=== PATIENT | female | born 1940 | race Caucasian/White ===

== ENCOUNTER 2018-06-08 17:00 | Inpatient (IN) | payer MEDICARE, MEDICAID ==
--- NOTE | 2018-06-08 17:30 | ED Physician Chart ---
ED Chief Complaint/HPI - Patient Information Date Seen:: 06/08/18 Time Seen:: 17:30 Allergies:: Allergies Allergy/AdvReac Type Severity Reaction Status Date / Time No Known Allergies Allergy Verified 06/08/18 17:13 Vitals:: Vital Signs - 8 hr 06/08/18 17:14 Temp 98.2 F HR 76 RR 19 BP 146/54 O2 Sat % 95 Review:: Nurse's Note Reviewed <Jake Anguiano - Last Filed: 06/08/18 17:30> - Patient Information Allergies:: Allergies Allergy/AdvReac Type Severity Reaction Status Date / Time No Known Allergies Allergy Verified 06/08/18 17:13 Vitals:: Vital Signs - 8 hr 06/08/18 06/08/18 17:14 18:48 Temp 98.2 F HR 76 64 RR 19 16 BP 146/54 139/64 O2 Sat % 95 98 <Salo Bustillo - Last Filed: 06/08/18 19:47> ED Review of Systems - Review of Systems General/Constitutional: No fever Skin: No skin lesions Head: No headache Eyes: No loss of vision ENT: No earache Neck: No mass noted Cardio Vascular: No chest pain Pulmonary: No SOB GI: No vomiting G/U: No dysuria Hematopoietic: No bruising Neurological: Syncope <Jake Anguiano - Last Filed: 06/08/18 17:30> ED Past Medical History - Past Medical History Past Medical History: HTN, DM, Dyslipidemia, Dementia ([place]) <Salo Bustillo - Last Filed: 06/08/18 19:47> Family Medical History - Family Member Mother History Unknown: Yes <Salo Bustillo - Last Filed: 06/08/18 19:47> ED Physical Exam - Physical Examination Head: Atraumatic Eyes: Lids, conjuctiva normal Skin: Nl inspection ENMT: External ears, nose nl Neck: Nontender GI: No tenderness/rebounding/guarding Extremities: No tenderness or effusion (CONFUSED ) <Salo Bustillo - Last Filed: 06/08/18 19:47> ED Labs/Radiology/EKG Results - Lab Results Results: Laboratory Tests 06/08/18 06/08/18 06/08/18 17:00 17:30 17:30 WBC RBC Hgb Hct MCV MCH MCHC Differential RDW Plt Count MPV Neutrophils % Lymphocytes % Monocytes % Eosinophils % Basophils % Sodium 138 Potassium 3.7 Chloride 105 Carbon Dioxide 25.3 Anion Gap 11.4 BUN 20 Creatinine 0.5 L Est GFR ( Amer) TNP Est GFR (Non-Af Amer) TNP BUN/Creatinine Ratio 40.0 Glucose 235 H Calcium 9.7 Total Bilirubin 0.7 AST 16 ALT 8 Alkaline Phosphatase 93 Total Protein 6.2 Albumin 3.7 Globulin 2.5 Albumin/Globulin Ratio 1.5 TSH 1.22 Urine Source RANDOM Urine Color YELLOW Urine Clarity HAZY Urine pH 5.5 Ur Specific [place] 1.025 Urine Protein NEGATIVE Urine Glucose (UA) NEGATIVE Urine Ketones NEGATIVE Urine Blood TRACE Urine Nitrate POSITIVE H Urine Bilirubin NEGATIVE Urine Urobilinogen 0.2 Ur Leukocyte Esterase TRACE H Urine RBC 2-5 Urine WBC 6-10 H Ur Epithelial Cells FEW Urine Bacteria 3+ H 06/08/18 17:30 WBC 5.1 RBC 3.91 Hgb 12.3 Hct 36.9 L MCV 94.3 MCH 31.6 H MCHC Differential 33.5 RDW 12.8 Plt Count 168 MPV 8.4 Neutrophils % 54.3 Lymphocytes % 33.4 Monocytes % 7.8 Eosinophils % 3.9 Basophils % 0.6 Sodium Potassium Chloride Carbon Dioxide Anion Gap BUN Creatinine Est GFR ( Amer) Est GFR (Non-Af Amer) BUN/Creatinine Ratio Glucose Calcium Total Bilirubin AST ALT Alkaline Phosphatase Total Protein Albumin Globulin Albumin/Globulin Ratio TSH Urine Source Urine Color Urine Clarity Urine pH Ur Specific [place] Urine Protein Urine Glucose (UA) Urine Ketones Urine Blood Urine Nitrate Urine Bilirubin Urine Urobilinogen Ur Leukocyte Esterase Urine RBC Urine WBC Ur Epithelial Cells Urine Bacteria <Salo Bustillo - Last Filed: 06/08/18 19:47> ED Assessment - Assessment General Assessment: daughter in with falls pt inability to take care self at home here for evaluation and placement <Jake Anguiano - Last Filed: 06/08/18 17:30> ED Septic Shock - <6hrs of presentation: Vital Signs: Vital Signs - 8 hr 06/08/18 17:14 Temp 98.2 F HR 76 RR 19 BP 146/54 O2 Sat % 95 <Jake Anguiano - Last Filed: 06/08/18 17:30> - . Is Septic Shock (SBP<90, OR Lactate>4 mmol\L) present?: No - <6hrs of presentation: Vital Signs: Vital Signs - 8 hr 06/08/18 06/08/18 17:14 18:48 Temp 98.2 F HR 76 64 RR 19 16 BP 146/54 139/64 O2 Sat % 95 98 <Salo Bustillo - Last Filed: 06/08/18 19:47> ED Reassessment (Disposition) - Reassessment Reassessment:: WEAKNESS FALLS DEMENTIA Reassessment Condition:: Improved - Patient Disposition Discharge/Transfer:: Acute Care w/in this hosp Admitted to:: Med/Surg Condition at Disposition:: Stable <Salo Bustillo - Last Filed: 06/08/18 19:47>
[2018-06-08 17:47] LABS: % BASOPHILS 0.6 % (0.0-2.0); % EOSINOPHILS 3.9 % (0.0-5.0); % LYMPHOCYTES 33.4 % (20.0-50.0); % MONOCYTES 7.8 % (2.0-10.0); % NEUTROPHILS 54.3 % (40.0-80.0); EOSINOPHILE ABSOLUTE 0.2 Th/cmm (0.1-0.4); HEMATOCRIT 36.9 % (41.0-60); HEMOGLOBIN 12.3 gm/dL (12-16); LYMPHOCYTE ABSOLUTE 1.7 Th/cmm (1.5-3.0); MEAN CELL VOLUME 94.3 fl (81-100); MEAN CORPUSCULAR HEMOGLOBIN 31.6 pg (27.0-31.0); MEAN CORPUSCULAR HGB CONC 33.5 pg (28.0-36.0); MEAN PLATELET VOLUME 8.4 fl; MONOCYTE ABSOLUTE 0.4 Th/cmm (0.3-1.0); NEUTROPHILE ABSOLUTE 2.8 Th/cmm (1.8-8.0); PLATELET COUNT 168 Th/cmm (150-400); RED BLOOD COUNT 3.91 Mil/cmm (3.80-5.20); RED CELL DISTRIBUTION WIDTH 12.8 % (11.5-20.0); WHITE BLOOD COUNT 5.1 Th/cmm (4.8-10.8)
[2018-06-08 18:06] LABS: ALB/GLOB RATIO 1.5 (1.0-1.8); ALBUMIN 3.7 gm/dL (3.7-5.3); ALKALINE PHOSPHATASE 93 U/L (34-104); ANION GAP 11.4 (7.0-16.0); BILIRUBIN,TOTAL 0.7 mg/dL (0.3-1.0); BUN - UREA NITROGEN 20 mg/dL (7-25); CALCIUM SERUM 9.7 mg/dL (8.6-10.3); CARBON DIOXIDE 25.3 mEq/L (21.0-31.0); CHLORIDE 105 mEq/L (98-107); CREATININE - SERUM 0.5 mg/dL (0.6-1.2); GLUCOSE 235 mg/dL (70-105); POTASSIUM SERUM 3.7 mEq/L (3.5-5.1); SGOT 16 U/L (13-39); SGPT/ALT 8 U/L (7-52); SODIUM SERUM 138 mEq/L (136-145); TOTAL PROTEIN,SERUM 6.2 gm/dL (6.0-8.3)
[2018-06-08 18:53] LABS: URINE SOURCE RANDOM
[2018-06-08 18:57] LABS: URINE BILIRUBIN NEGATIVE (NEGATIVE); URINE BLOOD TRACE (NEGATIVE); URINE GLUCOSE (UA) NEGATIVE (NEGATIVE); URINE KETONE NEGATIVE (NEGATIVE); URINE LEUKOCYTE ESTERASE TRACE (NEGATIVE); URINE MICROSCOPIC INDICATED? YES; URINE NITRATE POSITIVE (NEGATIVE); URINE PH 5.5 (4.6 - 8.0); URINE PROTEIN NEGATIVE (NEGATIVE); URINE UROBILINOGEN 0.2 E.U./dL (0.2 - 1.0)
[2018-06-08 19:21] LABS: URINE CLARITY HAZY (CLEAR); URINE COLOR YELLOW
[2018-06-08 19:25] LABS: URINE BACTERIA 3+ /hpf (NONE SEEN); URINE EPITHELIAL CELLS FEW /lpf (FEW)
[2018-06-08 20:31] VITALS: BP 131/86
[2018-06-08] MEDS: cefTRIAXone 1 GM in Sodium Chloride 0.9% 50 ML IV SCH (20:56)
[2018-06-09 06:22] LABS: % BASOPHILS 0.4 % (0.0-2.0); % EOSINOPHILS 4.4 % (0.0-5.0); % LYMPHOCYTES 36.4 % (20.0-50.0); % MONOCYTES 7.7 % (2.0-10.0); % NEUTROPHILS 51.1 % (40.0-80.0); EOSINOPHILE ABSOLUTE 0.2 Th/cmm (0.1-0.4); HEMATOCRIT 36.4 % (41.0-60); HEMOGLOBIN 12.2 gm/dL (12-16); MEAN CELL VOLUME 92.9 fl (81-100); MEAN CORPUSCULAR HEMOGLOBIN 31.1 pg (27.0-31.0); MEAN CORPUSCULAR HGB CONC 33.5 pg (28.0-36.0); MEAN PLATELET VOLUME 8.6 fl; MONOCYTE ABSOLUTE 0.4 Th/cmm (0.3-1.0); NEUTROPHILE ABSOLUTE 2.9 Th/cmm (1.8-8.0); PLATELET COUNT 170 Th/cmm (150-400); RED BLOOD COUNT 3.92 Mil/cmm (3.80-5.20); RED CELL DISTRIBUTION WIDTH 12.8 % (11.5-20.0); WHITE BLOOD COUNT 5.5 Th/cmm (4.8-10.8)
[2018-06-09 06:31] LABS: ANION GAP 10.5 (7.0-16.0); BUN - UREA NITROGEN 14 mg/dL (7-25); CALCIUM SERUM 9.7 mg/dL (8.6-10.3); CARBON DIOXIDE 27.8 mEq/L (21.0-31.0); CHLORIDE 107 mEq/L (98-107); CHOLESTEROL 165 mg/dL (<200); CREATININE - SERUM 0.4 mg/dL (0.6-1.2); HDL -HIGH DENSITY LIPOPROTEIN 27 mg/dL (23-92); POTASSIUM SERUM 3.3 mEq/L (3.5-5.1); SODIUM SERUM 142 mEq/L (136-145); TRIGLYCERIDES 159 mg/dL (<150)
[2018-06-09 06:52] LABS: GLUCOSE 107 mg/dL (70-105)
[2018-06-09] MEDS ORDERED: Potassium Chloride 20 mEq ER Tab PO ONE (07:47)
--- NOTE | 2018-06-09 07:56 | Diagnostic Imaging Report ---
Exam: Portable chest x-ray HISTORY: Pneumonia Prior exam: None Findings: Portable upright examination of the chest at 1805 is reviewed. The study was just cardiomegaly, mild congestion. The costophrenic angles are clear. Bony thorax is intact. Multiple metallic sutures are noted status post restaurant thoracotomy. IMPRESSION: Cardiomegaly, mild congestion.
--- NOTE | 2018-06-09 09:54 | Diagnostic Imaging Report ---
Head CT without intravenous contrast Indication: Fall Comparison: None Technique: Axial images were obtained from the vertex to the skull base without IV contrast. Coronal reconstructions were made. Total DLP: 617, CTDI35.2 FINDINGS: Images of the brain obtained without contrast demonstrate no evidence of an acute hemorrhage. Mild atrophy is noted. The lemus-white matter differentiation is preserved. The ventricles and basal cisterns are patent. No mass effect or midline shift. Atherosclerosis is noted. No evidence of a skull fracture or focal soft tissue swelling. The visualized paranasal sinuses demonstrate mild mucosal thickening. IMPRESSION: No acute intracranial abnormality Mild atrophy. Atherosclerotic vascular disease.
--- NOTE | 2018-06-09 17:23 | History & Physical ---
ADMIT DATE: 06/09/2018 REQUESTING PHYSICIAN: Dr. Najera. CHIEF COMPLAINT: Headache. HISTORY OF PRESENT ILLNESS: This is an 78-year-old female who has a 2-day history of increase of weakness, poor oral intake and frequent falls. No reports of any fevers or any dizziness at home. For further management, the patient is now admitted to the telemetry unit. PAST MEDICAL HISTORY: Hypertension, type 2 diabetes, psychosis. PAST SURGICAL HISTORY: Unknown. ALLERGIES: No drug allergies. HOME MEDICATIONS: Atenolol, glipizide, metformin, Seroquel. SOCIAL HISTORY: The patient lives at home. Denies any alcohol, illicit drug use, tobacco smoking. REVIEW OF SYSTEMS: GENERAL: Denies any fever or chills. CARDIOVASCULAR: Denies chest pain. RESPIRATORY: Denies shortness of breath. GASTROINTESTINAL: Denies nausea, vomiting, abdominal pain. GENITOURINARY: Denies increasing frequency or dysuria. NEUROLOGIC: No headaches, seizures or syncope. All systems reviewed and negative. PHYSICAL EXAMINATION: GENERAL: The patient is an elderly female. Awake, alert, no apparent distress. VITAL SIGNS: Temperature 97.5, heart rate 64, respiration 18, blood pressure 114/63, O2 97%. HEENT: Head normocephalic, atraumatic. NECK: Supple. No mass. LUNGS: Clear bilaterally. HEART: Regular rhythm. ABDOMEN: Soft, nontender. EXTREMITIES: No edema noted. LABORATORY DATA: WBC 5.5, H and H 12.2 and 36.4, platelet of 170. Sodium 142, potassium 3.3, chloride 107, BUN 14, creatinine 0.4. The patient had a urinalysis done, positive for UTI. DIAGNOSTICS: The patient had a CT of the head, impression is no intracranial hemorrhage. The patient also had a chest x-ray done, impression is cardiomegaly, mild congestion. ASSESSMENT: Acute urinary tract infection, frequent falls, generalized weakness, hypertension, type 2 diabetes. PLAN: We will send the patient's urine for culture, IV antibiotics of Rocephin. We will monitor the patient's potassium closely, follow up labs for tomorrow morning. We will put PT evaluation. We will continue to monitor this patient. JOB# [id number]
[2018-06-09] MEDS: cefTRIAXone 1 GM in Sodium Chloride 0.9% 50 ML IV SCH (20:19)
--- NOTE | 2018-06-09 21:18 | Consultation ---
DATE OF CONSULTATION: 06/09/2018 INFECTIOUS DISEASE CONSULTATION REFERRING PHYSICIAN: Dr. Najera REASON FOR CONSULTATION: Urinary tract infection. HISTORY OF PRESENT ILLNESS: The patient is an 78-year-old female with past medical history of hypertension and diabetes mellitus type 2, brought from home for poor oral intake as well as generalized weakness. On initial evaluation, the patient's temperature was 98.2 degree Fahrenheit and WBC count was 5100. Urinalysis showed pyuria and bacteriuria. Rocephin IV was started. ID consult was called for further antibiotic management. PAST MEDICAL HISTORY: Includes diabetes mellitus type 2, hypertension, dementia, dyslipidemia. ALLERGIES: NKDA. MEDICATIONS: See medication reconciliation. Antibiotic-rushing, Rocephin. FAMILY HISTORY: Unknown. SOCIAL HISTORY: The patient lives at home. Denies any smoking, alcohol or drug use. REVIEW OF SYSTEMS: GENERAL: The patient has no fever, no chills, no generalized weakness. HEENT: No diplopia, no photophobia, no sore throat. RESPIRATORY: No cough, no shortness of breath. CARDIOVASCULAR: No chest pain, no palpitation. GASTROINTESTINAL: No nausea, no vomiting, no diarrhea, no constipation. GENITOURINARY: No dysuria. NEUROLOGIC: No headache, no dizziness, no focal weakness. PHYSICAL EXAMINATION: CURRENT VITAL SIGNS: Show temperature is 96.9, pulse 60, respiration is 18, blood pressure 111/79, oxygen saturation 92%. GENERAL: The patient is comfortable, lying in bed, not in acute distress. HEENT: Head is normocephalic, atraumatic. Oral cavity is moist. [place] tongue. NECK: Supple. No JVD. No carotid bruit. Trachea midline. CHEST: Bilateral breath sounds. No crackles or wheezing. HEART: S1 and S2 within normal limits. Regular rhythm. No murmur, no gallop. ABDOMEN: Soft, nontender, nondistended. Bowel sound is present. EXTREMITIES: No cyanosis, no clubbing, no edema. NEUROLOGIC: Alert, awake, oriented x3. LABORATORY DATA: Current lab shows WBC count is 5500, hemoglobin 12.2, hematocrit 36.4, platelets are 170,000, neutrophil is 51%. Sodium 142, potassium 3.3, chloride 107, bicarbonate 28, BUN is 14, creatinine 0.4, glucose 107. Urinalysis shows positive nitrite, leukocyte esterase trace, and WBC's 6-10, and 3+ bacteria. IMPRESSION: 1. Urinary tract infection. 2. Diabetes mellitus type 2. 3. Hypertension. 4. Hyperlipidemia. 5. Dementia. RECOMMENDATIONS AND PLAN: We will continue Rocephin, which can be changed to Levaquin 250 mg p.o. daily for 5 more days. Follow the culture report, and depending on that, we will define further therapy. Thank you, Dr. Najera, for involving me in taking care of this patient. JOB# [id number]
--- NOTE | 2018-06-10 05:24 | Consultation ---
DATE OF CONSULTATION: 06/09/2018 NEUROLOGY CONSULT HISTORY OF PRESENT ILLNESS: An 78-year-old female noted to have weakness and some unsteadiness. The patient noted to be ataxic with tendency to fall. Some dizziness. In addition, the patient complains of some headache. PAST MEDICAL HISTORY: 1. The patient has dementia. 2. Psychosis. 3. Diabetes. 4. Hypertension. ALLERGIES: None. SURGERIES: No recent surgeries. MEDICATION: Seroquel, glipizide, metformin, atenolol. SOCIAL HISTORY: Does not smoke or drink. REVIEW OF SYSTEMS: Twelve point negative except for above. PHYSICAL EXAMINATION: VITAL SIGNS: Temperature 98.2, blood pressure 120/68, pulse 66. NECK: Supple. No neck bruits. HEART: Sounds S1, S2. LUNGS: Clear. NEUROLOGIC: Awake, alert. She speaks mainly [place]. She will give her name, but does not say much else. She could not give me the day, the month, the year. CRANIAL NERVES: Pupils react to light. The patient moves eyes in all directions. No facial weakness. MOTOR: She will actually lift both arms up. Legs, she is weaker. She will lift them up, but weaker. Reflexes: -1 upper extremity, absent at the knees and ankles. Withdrawal of the toes. INVESTIGATIONS: CT scan of the head, no acute process. LABORATORY DATA: WBC 5.5, hemoglobin 12.2, platelets normal. Sodium 142, potassium 3.3. TSH 3.54. UA positive, 6-10. ASSESSMENT: 1. Encephalopathy. 2. Underlying dementia. 3. Ataxia. 4. Falls. 5. Rule out spinal process. 6. Peripheral neuropathy. 7. Diabetes. 8. Hypertension. 9. Urinary tract infection. PLAN: 1. Physical therapy. The patient has high risk of fall, needs physical therapy and walking aids. 2. CT scan, cervical spine. 3. Lab studies. JOB# [id number]
[2018-06-10 06:38] LABS: % BASOPHILS 0.5 % (0.0-2.0); % LYMPHOCYTES 30.1 % (20.0-50.0); % MONOCYTES 7.7 % (2.0-10.0); % NEUTROPHILS 58.7 % (40.0-80.0); EOSINOPHILE ABSOLUTE 0.2 Th/cmm (0.1-0.4); HEMATOCRIT 38.3 % (41.0-60); HEMOGLOBIN 12.7 gm/dL (12-16); LYMPHOCYTE ABSOLUTE 1.7 Th/cmm (1.5-3.0); MEAN CELL VOLUME 94.2 fl (81-100); MEAN CORPUSCULAR HEMOGLOBIN 31.2 pg (27.0-31.0); MEAN CORPUSCULAR HGB CONC 33.1 pg (28.0-36.0); MEAN PLATELET VOLUME 8.9 fl; MONOCYTE ABSOLUTE 0.4 Th/cmm (0.3-1.0); NEUTROPHILE ABSOLUTE 3.2 Th/cmm (1.8-8.0); PLATELET COUNT 171 Th/cmm (150-400); RED BLOOD COUNT 4.07 Mil/cmm (3.80-5.20); RED CELL DISTRIBUTION WIDTH 12.4 % (11.5-20.0); WHITE BLOOD COUNT 5.5 Th/cmm (4.8-10.8)
[2018-06-10 06:52] LABS: ALB/GLOB RATIO 1.4 (1.0-1.8); ALBUMIN 3.6 gm/dL (3.7-5.3); ALKALINE PHOSPHATASE 76 U/L (34-104); BILIRUBIN,TOTAL 0.7 mg/dL (0.3-1.0); BUN - UREA NITROGEN 15 mg/dL (7-25); CALCIUM SERUM 9.9 mg/dL (8.6-10.3); CARBON DIOXIDE 28.5 mEq/L (21.0-31.0); CHLORIDE 105 mEq/L (98-107); CREATININE - SERUM 0.5 mg/dL (0.6-1.2); CREATININE KINASE 36 U/L (30-223); GLUCOSE 67 mg/dL (70-105); POTASSIUM SERUM 3.5 mEq/L (3.5-5.1); SGOT 16 U/L (13-39); SGPT/ALT 9 U/L (7-52); SODIUM SERUM 141 mEq/L (136-145); TOTAL PROTEIN,SERUM 6.2 gm/dL (6.0-8.3)
[2018-06-10 08:19] LABS: ESR SEDIMENTATION SED RATE 1 mm/hr (0-30)
--- NOTE | 2018-06-10 09:00 | Internal Medicine Prog Note ---
Internal Medicine Subjective - Subjective Service Date: 06/10/18 Patient seen and examined:: chart reviewed Patient is:: awake, in bed, confused Per staff patient has:: confused Internal Medicine Objective - Results Result Diagrams: 06/10/18 05:45 06/10/18 05:45 Recent Labs: Laboratory Last Values WBC 5.5 Th/cmm (4.8-10.8) 06/10/18 05:45 RBC 4.07 Mil/cmm (3.80-5.20) 06/10/18 05:45 Hgb 12.7 gm/dL (12-16) 06/10/18 05:45 Hct 38.3 % (41.0-60) L 06/10/18 05:45 MCV 94.2 fl (81-100) 06/10/18 05:45 MCH 31.2 pg (27.0-31.0) H 06/10/18 05:45 MCHC Differential 33.1 pg (28.0-36.0) 06/10/18 05:45 RDW 12.4 % (11.5-20.0) 06/10/18 05:45 Plt Count 171 Th/cmm (150-400) 06/10/18 05:45 MPV 8.9 fl 06/10/18 05:45 Neutrophils % 58.7 % (40.0-80.0) 06/10/18 05:45 Lymphocytes % 30.1 % (20.0-50.0) 06/10/18 05:45 Monocytes % 7.7 % (2.0-10.0) 06/10/18 05:45 Eosinophils % 3.0 % (0.0-5.0) 06/10/18 05:45 Basophils % 0.5 % (0.0-2.0) 06/10/18 05:45 ESR 1 mm/hr (0-30) 06/10/18 05:45 Sodium 141 mEq/L (136-145) 06/10/18 05:45 Potassium 3.5 mEq/L (3.5-5.1) 06/10/18 05:45 Chloride 105 mEq/L (98-107) 06/10/18 05:45 Carbon Dioxide 28.5 mEq/L (21.0-31.0) 06/10/18 05:45 Anion Gap 11.0 (7.0-16.0) 06/10/18 05:45 BUN 15 mg/dL (7-25) 06/10/18 05:45 Creatinine 0.5 mg/dL (0.6-1.2) L 06/10/18 05:45 Est GFR ( Amer) TNP 06/10/18 05:45 Est GFR (Non-Af Amer) TNP 06/10/18 05:45 BUN/Creatinine Ratio 30.0 06/10/18 05:45 Glucose 67 mg/dL (70-105) L 06/10/18 05:45 Calcium 9.9 mg/dL (8.6-10.3) 06/10/18 05:45 Total Bilirubin 0.7 mg/dL (0.3-1.0) 06/10/18 05:45 AST 16 U/L (13-39) 06/10/18 05:45 ALT 9 U/L (7-52) 06/10/18 05:45 Alkaline Phosphatase 76 U/L (34-104) 06/10/18 05:45 Creatine Kinase 36 U/L (30-223) 06/10/18 05:45 Total Protein 6.2 gm/dL (6.0-8.3) 06/10/18 05:45 Albumin 3.6 gm/dL (3.7-5.3) L 06/10/18 05:45 Globulin 2.6 gm/dL 06/10/18 05:45 Albumin/Globulin Ratio 1.4 (1.0-1.8) 06/10/18 05:45 Triglycerides 159 mg/dL (<150) H 06/09/18 05:55 Cholesterol 165 mg/dL (<200) 06/09/18 05:55 LDL Cholesterol Direct 109 mg/dL (75-193) 06/09/18 05:55 HDL Cholesterol 27 mg/dL (23-92) 06/09/18 05:55 TSH 3.54 uIU/ml (0.34-5.60) 06/09/18 05:55 Urine Source RANDOM 06/08/18 17:00 Urine Color YELLOW 06/08/18 17:00 Urine Clarity HAZY (CLEAR) 06/08/18 17:00 Urine pH 5.5 (4.6 - 8.0) 06/08/18 17:00 Ur Specific [place] 1.025 (1.005-1.030) 06/08/18 17:00 Urine Protein NEGATIVE mg/dL (NEGATIVE) 06/08/18 17:00 Urine Glucose (UA) NEGATIVE mg/dL (NEGATIVE) 06/08/18 17:00 Urine Ketones NEGATIVE mg/dL (NEGATIVE) 06/08/18 17:00 Urine Blood TRACE (NEGATIVE) 06/08/18 17:00 Urine Nitrate POSITIVE (NEGATIVE) H 06/08/18 17:00 Urine Bilirubin NEGATIVE (NEGATIVE) 06/08/18 17:00 Urine Urobilinogen 0.2 E.U./dL (0.2 - 1.0) 06/08/18 17:00 Ur Leukocyte Esterase TRACE (NEGATIVE) H 06/08/18 17:00 Urine RBC 2-5 /hpf (0-5) 06/08/18 17:00 Urine WBC 6-10 /hpf (0-5) H 06/08/18 17:00 Ur Epithelial Cells FEW /lpf (FEW) 06/08/18 17:00 Urine Bacteria 3+ /hpf (NONE SEEN) H 06/08/18 17:00 - Physical Exam Vitals and I&O: Vital Signs Temp 97.2 F 06/10/18 06:00 Pulse 61 06/10/18 08:49 Resp 18 06/10/18 06:00 BP 132/66 06/10/18 08:49 Pulse Ox 96 06/10/18 06:00 Intake & Output 06/09/18 06/10/18 06/10/18 18:59 06:59 18:59 Intake Total 800 Balance 800 Weight (lbs) 62.142 kg Intake: Oral 800 Other: # Voids 3 # Bowel Movements 0 Weight Source Bedscale Active Medications: Current Medications Acetaminophen (Tylenol) 650 mg PO Q4H PRN PRN Reason: Pain (Moderate) Stop: 08/08/18 10:00 Last Admin: 06/09/18 10:10 Dose: 650 mg Atenolol (Tenormin) 25 mg PO DAILY [facility] Stop: 08/09/18 08:59 Last Admin: 06/10/18 08:49 Dose: 25 mg Glipizide (Glucotrol) 15 mg PO BID [facility] Stop: 08/08/18 16:59 Last Admin: 04/02/19 16:58 Dose: 15 mg Ceftriaxone Sodium 1 gm/ (Sodium Chloride) 50 mls @ 100 mls/hr IV Q24HR [facility] Stop: 06/14/18 21:29 Last Admin: 06/09/18 20:19 Dose: 100 mls/hr Lorazepam (Ativan) 1 mg IVP Q6H PRN; Protocol PRN Reason: Agitation Stop: 08/07/18 21:22 Last Admin: 06/09/18 14:17 Dose: 1 mg Metformin HCl (Glucophage) 1,000 mg PO BID [facility] Stop: 08/08/18 16:59 Last Admin: 06/09/18 16:58 Dose: 1,000 mg Quetiapine Fumarate (Seroquel) 25 mg PO HS [facility]; Protocol Stop: 08/08/18 20:59
--- NOTE | 2018-06-10 09:01 | Internal Medicine Prog Note ---
Internal Medicine Subjective - Subjective Service Date: 06/10/18 Patient seen and examined:: chart reviewed Patient is:: awake, confused Per staff patient has:: no episodes of fall, confused Internal Medicine Objective - Results Result Diagrams: 06/10/18 05:45 06/10/18 05:45 Recent Labs: Laboratory Last Values WBC 5.5 Th/cmm (4.8-10.8) 06/10/18 05:45 RBC 4.07 Mil/cmm (3.80-5.20) 06/10/18 05:45 Hgb 12.7 gm/dL (12-16) 06/10/18 05:45 Hct 38.3 % (41.0-60) L 06/10/18 05:45 MCV 94.2 fl (81-100) 06/10/18 05:45 MCH 31.2 pg (27.0-31.0) H 06/10/18 05:45 MCHC Differential 33.1 pg (28.0-36.0) 06/10/18 05:45 RDW 12.4 % (11.5-20.0) 06/10/18 05:45 Plt Count 171 Th/cmm (150-400) 06/10/18 05:45 MPV 8.9 fl 06/10/18 05:45 Neutrophils % 58.7 % (40.0-80.0) 06/10/18 05:45 Lymphocytes % 30.1 % (20.0-50.0) 06/10/18 05:45 Monocytes % 7.7 % (2.0-10.0) 06/10/18 05:45 Eosinophils % 3.0 % (0.0-5.0) 06/10/18 05:45 Basophils % 0.5 % (0.0-2.0) 06/10/18 05:45 ESR 1 mm/hr (0-30) 06/10/18 05:45 Sodium 141 mEq/L (136-145) 06/10/18 05:45 Potassium 3.5 mEq/L (3.5-5.1) 06/10/18 05:45 Chloride 105 mEq/L (98-107) 06/10/18 05:45 Carbon Dioxide 28.5 mEq/L (21.0-31.0) 06/10/18 05:45 Anion Gap 11.0 (7.0-16.0) 06/10/18 05:45 BUN 15 mg/dL (7-25) 06/10/18 05:45 Creatinine 0.5 mg/dL (0.6-1.2) L 06/10/18 05:45 Est GFR ( Amer) TNP 06/10/18 05:45 Est GFR (Non-Af Amer) TNP 06/10/18 05:45 BUN/Creatinine Ratio 30.0 06/10/18 05:45 Glucose 67 mg/dL (70-105) L 06/10/18 05:45 Calcium 9.9 mg/dL (8.6-10.3) 06/10/18 05:45 Total Bilirubin 0.7 mg/dL (0.3-1.0) 06/10/18 05:45 AST 16 U/L (13-39) 06/10/18 05:45 ALT 9 U/L (7-52) 06/10/18 05:45 Alkaline Phosphatase 76 U/L (34-104) 06/10/18 05:45 Creatine Kinase 36 U/L (30-223) 06/10/18 05:45 Total Protein 6.2 gm/dL (6.0-8.3) 06/10/18 05:45 Albumin 3.6 gm/dL (3.7-5.3) L 06/10/18 05:45 Globulin 2.6 gm/dL 06/10/18 05:45 Albumin/Globulin Ratio 1.4 (1.0-1.8) 06/10/18 05:45 Triglycerides 159 mg/dL (<150) H 06/09/18 05:55 Cholesterol 165 mg/dL (<200) 06/09/18 05:55 LDL Cholesterol Direct 109 mg/dL (75-193) 06/09/18 05:55 HDL Cholesterol 27 mg/dL (23-92) 06/09/18 05:55 TSH 3.54 uIU/ml (0.34-5.60) 06/09/18 05:55 Urine Source RANDOM 06/08/18 17:00 Urine Color YELLOW 06/08/18 17:00 Urine Clarity HAZY (CLEAR) 06/08/18 17:00 Urine pH 5.5 (4.6 - 8.0) 06/08/18 17:00 Ur Specific [place] 1.025 (1.005-1.030) 06/08/18 17:00 Urine Protein NEGATIVE mg/dL (NEGATIVE) 06/08/18 17:00 Urine Glucose (UA) NEGATIVE mg/dL (NEGATIVE) 06/08/18 17:00 Urine Ketones NEGATIVE mg/dL (NEGATIVE) 06/08/18 17:00 Urine Blood TRACE (NEGATIVE) 06/08/18 17:00 Urine Nitrate POSITIVE (NEGATIVE) H 06/08/18 17:00 Urine Bilirubin NEGATIVE (NEGATIVE) 06/08/18 17:00 Urine Urobilinogen 0.2 E.U./dL (0.2 - 1.0) 06/08/18 17:00 Ur Leukocyte Esterase TRACE (NEGATIVE) H 06/08/18 17:00 Urine RBC 2-5 /hpf (0-5) 06/08/18 17:00 Urine WBC 6-10 /hpf (0-5) H 06/08/18 17:00 Ur Epithelial Cells FEW /lpf (FEW) 06/08/18 17:00 Urine Bacteria 3+ /hpf (NONE SEEN) H 06/08/18 17:00 - Physical Exam Vitals and I&O: Vital Signs Temp 97.2 F 06/10/18 06:00 Pulse 61 06/10/18 08:49 Resp 18 06/10/18 06:00 BP 132/66 06/10/18 08:49 Pulse Ox 96 06/10/18 06:00 Intake & Output 06/09/18 06/10/18 06/10/18 18:59 06:59 18:59 Intake Total 800 Balance 800 Weight (lbs) 62.142 kg Intake: Oral 800 Other: # Voids 3 # Bowel Movements 0 Weight Source Bedscale Active Medications: Current Medications Acetaminophen (Tylenol) 650 mg PO Q4H PRN PRN Reason: Pain (Moderate) Stop: 08/08/18 10:00 Last Admin: 06/09/18 10:10 Dose: 650 mg Atenolol (Tenormin) 25 mg PO DAILY [facility] Stop: 08/09/18 08:59 Last Admin: 06/10/18 08:49 Dose: 25 mg Glipizide (Glucotrol) 15 mg PO BID [facility] Stop: 08/08/18 16:59 Last Admin: 06/09/18 16:58 Dose: 15 mg Ceftriaxone Sodium 1 gm/ (Sodium Chloride) 50 mls @ 100 mls/hr IV Q24HR [facility] Stop: 06/14/18 21:29 Last Admin: 06/09/18 20:19 Dose: 100 mls/hr Lorazepam (Ativan) 1 mg IVP Q6H PRN; Protocol PRN Reason: Agitation Stop: 08/07/18 21:22 Last Admin: 06/09/18 14:17 Dose: 1 mg Metformin HCl (Glucophage) 1,000 mg PO BID [facility] Stop: 08/08/18 16:59 Last Admin: 06/09/18 16:58 Dose: 1,000 mg Quetiapine Fumarate (Seroquel) 25 mg PO HS [facility]; Protocol Stop: 08/08/18 20:59
--- NOTE | 2018-06-10 10:11 | Diagnostic Imaging Report ---
Bilateral carotid Doppler ultrasound exam HISTORY: Ataxia Sonographic sector images are obtained to the carotid bifurcation regions bilaterally. Associated Doppler data was obtained. The exam of the right side demonstrates generalized intimal thickening throughout the bifurcation region. Mild multifocal plaque is seen in the common carotid artery and carotid bulb region. No significant narrowing or stenosis. Antegrade vertebral artery flow. Velocities and flow ratios are normal (ICC/CCA equals 0.6). The left side demonstrates mild multifocal atherosclerotic plaque within the carotid bulb region and proximal portion of the left internal carotid artery. No significant narrowing or stenosis. Antegrade vertebral artery flow. Velocities and flow ratios are normal (ICC/CCA equals 1.08). IMPRESSION: 1. Mild multifocal atherosclerotic changes. These do not appear to be hemodynamically significant.
--- NOTE | 2018-06-10 11:51 | Diagnostic Imaging Report ---
CT scan cervical spine HISTORY: Ataxia, trauma Total DLP equals 472 CTDI equals 22.5 Axial sections were obtained to the cervical spine. Additional sagittal and coronal reformatted images are provided. The exam demonstrates extensive abnormal changes about the odontoid process with marked irregularity and subcortical cyst formation. Dense calcification is noted along the margins of the odontoid process particularly posteriorly. Findings are consistent with changes of calcium pyrophosphate deposition disease. There is suggestion of mild encroachment on the adjacent cervical spinal cord. An MRI exam would provide additional detail. Additional diffuse degenerative changes with hypertrophic spur formation noted about the endplates of all vertebrae. There is slight retrolisthesis of C5 relative to C4. Narrowing of the C5-6 and C6-7 disc spaces. Spur formation results in mild to moderate extradural indentations on the anterior spinal canal at C4-5, C6-7, and to a somewhat greater degree C5-6. No acute abnormalities. No fractures. IMPRESSION: 1. Severe deformity and chronic changes about the odontoid process with adjacent calcification suggesting findings of calcium pyrophosphate deposition disease. Associated mild encroachment on the adjacent cervical spinal cord. An MRI exam would provide for further assessment and evaluation. 2. Additional diffuse degenerative changes most severe at C5-6.
[2018-06-10] MEDS: cefTRIAXone 1 GM in Sodium Chloride 0.9% 50 ML IV SCH (20:44)
--- NOTE | 2018-06-10 23:24 | Infectious Disease Prog Note ---
Infectious Disease Subjective - Review of Systems Service Date: 06/10/18 Subjective: There is no new change, no fever. Infectious Disease Objective - Results Result Diagrams: 06/11/18 05:40 06/11/18 05:40 Recent Labs: Laboratory Last Values WBC 5.5 Th/cmm (4.8-10.8) 06/10/18 05:45 RBC 4.07 Mil/cmm (3.80-5.20) 06/10/18 05:45 Hgb 12.7 gm/dL (12-16) 06/10/18 05:45 Hct 38.3 % (41.0-60) L 06/10/18 05:45 MCV 94.2 fl (81-100) 06/10/18 05:45 MCH 31.2 pg (27.0-31.0) H 06/10/18 05:45 MCHC Differential 33.1 pg (28.0-36.0) 06/10/18 05:45 RDW 12.4 % (11.5-20.0) 06/10/18 05:45 Plt Count 171 Th/cmm (150-400) 06/10/18 05:45 MPV 8.9 fl 06/10/18 05:45 Neutrophils % 58.7 % (40.0-80.0) 06/10/18 05:45 Lymphocytes % 30.1 % (20.0-50.0) 06/10/18 05:45 Monocytes % 7.7 % (2.0-10.0) 06/10/18 05:45 Eosinophils % 3.0 % (0.0-5.0) 06/10/18 05:45 Basophils % 0.5 % (0.0-2.0) 06/10/18 05:45 ESR 1 mm/hr (0-30) 06/10/18 05:45 Sodium 141 mEq/L (136-145) 06/10/18 05:45 Potassium 3.5 mEq/L (3.5-5.1) 06/10/18 05:45 Chloride 105 mEq/L (98-107) 06/10/18 05:45 Carbon Dioxide 28.5 mEq/L (21.0-31.0) 06/10/18 05:45 Anion Gap 11.0 (7.0-16.0) 06/10/18 05:45 BUN 15 mg/dL (7-25) 06/10/18 05:45 Creatinine 0.5 mg/dL (0.6-1.2) L 06/10/18 05:45 Est GFR ( Amer) TNP 06/10/18 05:45 Est GFR (Non-Af Amer) TNP 06/10/18 05:45 BUN/Creatinine Ratio 30.0 06/10/18 05:45 Glucose 67 mg/dL (70-105) L 06/10/18 05:45 POC Glucose 74 MG/DL (70 - 105) 06/10/18 16:13 Calcium 9.9 mg/dL (8.6-10.3) 06/10/18 05:45 Total Bilirubin 0.7 mg/dL (0.3-1.0) 06/10/18 05:45 AST 16 U/L (13-39) 06/10/18 05:45 ALT 9 U/L (7-52) 06/10/18 05:45 Alkaline Phosphatase 76 U/L (34-104) 06/10/18 05:45 Creatine Kinase 36 U/L (30-223) 06/10/18 05:45 Total Protein 6.2 gm/dL (6.0-8.3) 06/10/18 05:45 Albumin 3.6 gm/dL (3.7-5.3) L 06/10/18 05:45 Globulin 2.6 gm/dL 06/10/18 05:45 Albumin/Globulin Ratio 1.4 (1.0-1.8) 06/10/18 05:45 Triglycerides 159 mg/dL (<150) H 06/09/18 05:55 Cholesterol 165 mg/dL (<200) 06/09/18 05:55 LDL Cholesterol Direct 109 mg/dL (75-193) 06/09/18 05:55 HDL Cholesterol 27 mg/dL (23-92) 06/09/18 05:55 TSH 3.54 uIU/ml (0.34-5.60) 06/09/18 05:55 Urine Source RANDOM 06/08/18 17:00 Urine Color YELLOW 06/08/18 17:00 Urine Clarity HAZY (CLEAR) 06/08/18 17:00 Urine pH 5.5 (4.6 - 8.0) 06/08/18 17:00 Ur Specific [place] 1.025 (1.005-1.030) 06/08/18 17:00 Urine Protein NEGATIVE mg/dL (NEGATIVE) 06/08/18 17:00 Urine Glucose (UA) NEGATIVE mg/dL (NEGATIVE) 06/08/18 17:00 Urine Ketones NEGATIVE mg/dL (NEGATIVE) 06/08/18 17:00 Urine Blood TRACE (NEGATIVE) 06/08/18 17:00 Urine Nitrate POSITIVE (NEGATIVE) H 06/08/18 17:00 Urine Bilirubin NEGATIVE (NEGATIVE) 06/08/18 17:00 Urine Urobilinogen 0.2 E.U./dL (0.2 - 1.0) 06/08/18 17:00 Ur Leukocyte Esterase TRACE (NEGATIVE) H 06/08/18 17:00 Urine RBC 2-5 /hpf (0-5) 06/08/18 17:00 Urine WBC 6-10 /hpf (0-5) H 06/08/18 17:00 Ur Epithelial Cells FEW /lpf (FEW) 06/08/18 17:00 Urine Bacteria 3+ /hpf (NONE SEEN) H 06/08/18 17:00 - Physical Exam Vitals and I&O: Vital Signs Temp 97.7 F 06/10/18 16:00 Pulse 65 06/10/18 16:00 Resp 19 06/10/18 16:00 BP 135/60 06/10/18 16:00 Pulse Ox 99 06/10/18 16:00 Intake & Output 06/10/18 06/10/18 06/11/18 06:59 18:59 06:59 Intake Total 50 900 Balance 50 900 Weight (lbs) 62.142 kg Intake: Intake, IV Amount 50 [id number] 1 gm In 50 Sodium Chloride 0.9% 50 ml @ 100 mls/hr IV Q24HR [facility] Rx#:[id number] Oral 900 Other: # Voids 3 # Bowel Movements 2 Weight Source Bedscale Active Medications: Current Medications Acetaminophen (Tylenol) 650 mg PO Q4H PRN PRN Reason: Pain (Moderate) Stop: 08/08/18 10:00 Last Admin: 06/09/18 10:10 Dose: 650 mg Atenolol (Tenormin) 25 mg PO DAILY [facility] Stop: 08/09/18 08:59 Last Admin: 06/10/18 08:49 Dose: 25 mg Glipizide (Glucotrol) 15 mg PO BID [facility] Stop: 08/08/18 16:59 Last Admin: 06/10/18 16:21 Dose: Not Given Ceftriaxone Sodium 1 gm/ (Sodium Chloride) 50 mls @ 100 mls/hr IV Q24HR [facility] Stop: 06/14/18 21:29 Last Admin: 06/10/18 20:44 Dose: 100 mls/hr Lorazepam (Ativan) 1 mg IVP Q6H PRN; Protocol PRN Reason: Agitation Stop: 08/07/18 21:22 Last Admin: 06/09/18 14:17 Dose: 1 mg Metformin HCl (Glucophage) 1,000 mg PO BID [facility] Stop: 08/08/18 16:59 Last Admin: 06/10/18 16:21 Dose: Not Given Quetiapine Fumarate (Seroquel) 25 mg PO HS [facility]; Protocol Stop: 08/09/18 20:59 Last Admin: 06/10/18 20:43 Dose: 25 mg General: no acute distress, well developed, well nourished HEENT: atraumatic, normocephalic, PERRLA Neck: supple, no thyromegaly, no lymphadenopathy Cardiovascular: S1S2, regular Lungs: clear to auscultation bilaterally, clear to percussion Abdomen: soft, no tender Extremities: no cyanosis, no clubbing, no edema Neurological: awake, alert, oriented Infectious Disease Assmt/Plan - Problem List Patient Problems: All Active Problems WEAKNESS AND FREQUENT FALLS (Acute) - Assessment Assessment: 1. Urinary tract infection. 2. Diabetes mellitus type 2. 3. Hypertension. 4. Hyperlipidemia. 5. Dementia. - Plan Plan: continue Rocephin, which can be changed to Levaquin 250 mg p.o. daily for 4 more days.
[2018-06-11 07:01] LABS: EOSINOPHILE ABSOLUTE 0.3 Th/cmm (0.1-0.4); HEMOGLOBIN 12.8 gm/dL (12-16); MONOCYTE ABSOLUTE 0.6 Th/cmm (0.3-1.0); RED CELL DISTRIBUTION WIDTH 12.6 % (11.5-20.0)
[2018-06-11 07:14] LABS: % BASOPHILS 0.2 % (0.0-2.0); % EOSINOPHILS 4.1 % (0.0-5.0); % LYMPHOCYTES 29.6 % (20.0-50.0); % MONOCYTES 8.5 % (2.0-10.0); % NEUTROPHILS 57.6 % (40.0-80.0); ANION GAP 10.4 (7.0-16.0); BUN - UREA NITROGEN 14 mg/dL (7-25); CALCIUM SERUM 10.2 mg/dL (8.6-10.3); CARBON DIOXIDE 28.8 mEq/L (21.0-31.0); CHLORIDE 102 mEq/L (98-107); CREATININE - SERUM 0.5 mg/dL (0.6-1.2); GLUCOSE 70 mg/dL (70-105); HEMATOCRIT 38.4 % (41.0-60); LYMPHOCYTE ABSOLUTE 1.9 Th/cmm (1.5-3.0); MEAN CELL VOLUME 93.8 fl (81-100); MEAN CORPUSCULAR HEMOGLOBIN 31.1 pg (27.0-31.0); MEAN CORPUSCULAR HGB CONC 33.2 pg (28.0-36.0); MEAN PLATELET VOLUME 8.8 fl; NEUTROPHILE ABSOLUTE 3.7 Th/cmm (1.8-8.0); PLATELET COUNT 183 Th/cmm (150-400); POTASSIUM SERUM 3.2 mEq/L (3.5-5.1); SODIUM SERUM 138 mEq/L (136-145); WHITE BLOOD COUNT 6.5 Th/cmm (4.8-10.8)
[2018-06-11] MEDS ORDERED: Potassium Chloride 20 mEq ER Tab PO ONE (07:37)
[2018-06-11 11:11] LABS: FOLIC ACID 14.5 ng/mL (>3.0)
--- NOTE | 2018-06-11 13:29 | Infectious Disease Prog Note ---
Infectious Disease Subjective - Review of Systems Service Date: 06/11/18 Subjective: There is no new change, no fever. Infectious Disease Objective - Results Result Diagrams: 06/11/18 05:40 06/11/18 05:40 Recent Labs: Laboratory Last Values WBC 6.5 Th/cmm (4.8-10.8) 06/11/18 05:40 RBC 4.10 Mil/cmm (3.80-5.20) 06/11/18 05:40 Hgb 12.8 gm/dL (12-16) 06/11/18 05:40 Hct 38.4 % (41.0-60) L 06/11/18 05:40 MCV 93.8 fl (81-100) 06/11/18 05:40 MCH 31.1 pg (27.0-31.0) H 06/11/18 05:40 MCHC Differential 33.2 pg (28.0-36.0) 06/11/18 05:40 RDW 12.6 % (11.5-20.0) 06/11/18 05:40 Plt Count 183 Th/cmm (150-400) 06/11/18 05:40 MPV 8.8 fl 06/11/18 05:40 Neutrophils % 57.6 % (40.0-80.0) 06/11/18 05:40 Lymphocytes % 29.6 % (20.0-50.0) 06/11/18 05:40 Monocytes % 8.5 % (2.0-10.0) 06/11/18 05:40 Eosinophils % 4.1 % (0.0-5.0) 06/11/18 05:40 Basophils % 0.2 % (0.0-2.0) 06/11/18 05:40 ESR 1 mm/hr (0-30) 06/10/18 05:45 Sodium 138 mEq/L (136-145) 06/11/18 05:40 Potassium 3.2 mEq/L (3.5-5.1) L 06/11/18 05:40 Chloride 102 mEq/L (98-107) 06/11/18 05:40 Carbon Dioxide 28.8 mEq/L (21.0-31.0) 06/11/18 05:40 Anion Gap 10.4 (7.0-16.0) 06/11/18 05:40 BUN 14 mg/dL (7-25) 06/11/18 05:40 Creatinine 0.5 mg/dL (0.6-1.2) L 06/11/18 05:40 Est GFR ( Amer) TNP 06/11/18 05:40 Est GFR (Non-Af Amer) TNP 06/11/18 05:40 BUN/Creatinine Ratio 28.0 06/11/18 05:40 Glucose 70 mg/dL (70-105) 06/11/18 05:40 POC Glucose 74 MG/DL (70 - 105) 06/10/18 16:13 Calcium 10.2 mg/dL (8.6-10.3) 06/11/18 05:40 Total Bilirubin 0.7 mg/dL (0.3-1.0) 06/10/18 05:45 AST 16 U/L (13-39) 06/10/18 05:45 ALT 9 U/L (7-52) 06/10/18 05:45 Alkaline Phosphatase 76 U/L (34-104) 06/10/18 05:45 Creatine Kinase 36 U/L (30-223) 06/10/18 05:45 Total Protein 6.2 gm/dL (6.0-8.3) 06/10/18 05:45 Albumin 3.6 gm/dL (3.7-5.3) L 06/10/18 05:45 Globulin 2.6 gm/dL 06/10/18 05:45 Albumin/Globulin Ratio 1.4 (1.0-1.8) 06/10/18 05:45 Triglycerides 159 mg/dL (<150) H 06/09/18 05:55 Cholesterol 165 mg/dL (<200) 06/09/18 05:55 LDL Cholesterol Direct 109 mg/dL (75-193) 06/09/18 05:55 HDL Cholesterol 27 mg/dL (23-92) 06/09/18 05:55 Vitamin B12 486 pg/mL (232-1245) 06/10/18 05:45 Folic Acid 14.5 ng/mL (>3.0) 06/10/18 05:45 TSH 3.54 uIU/ml (0.34-5.60) 06/09/18 05:55 Urine Source RANDOM 06/08/18 17:00 Urine Color YELLOW 06/08/18 17:00 Urine Clarity HAZY (CLEAR) 06/08/18 17:00 Urine pH 5.5 (4.6 - 8.0) 06/08/18 17:00 Ur Specific [place] 1.025 (1.005-1.030) 06/08/18 17:00 Urine Protein NEGATIVE mg/dL (NEGATIVE) 06/08/18 17:00 Urine Glucose (UA) NEGATIVE mg/dL (NEGATIVE) 06/08/18 17:00 Urine Ketones NEGATIVE mg/dL (NEGATIVE) 06/08/18 17:00 Urine Blood TRACE (NEGATIVE) 06/08/18 17:00 Urine Nitrate POSITIVE (NEGATIVE) H 06/08/18 17:00 Urine Bilirubin NEGATIVE (NEGATIVE) 06/08/18 17:00 Urine Urobilinogen 0.2 E.U./dL (0.2 - 1.0) 06/08/18 17:00 Ur Leukocyte Esterase TRACE (NEGATIVE) H 06/08/18 17:00 Urine RBC 2-5 /hpf (0-5) 06/08/18 17:00 Urine WBC 6-10 /hpf (0-5) H 06/08/18 17:00 Ur Epithelial Cells FEW /lpf (FEW) 06/08/18 17:00 Urine Bacteria 3+ /hpf (NONE SEEN) H 06/08/18 17:00 - Physical Exam Vitals and I&O: Vital Signs Temp 98.2 F 06/11/18 05:00 Pulse 64 06/11/18 09:39 Resp 18 06/11/18 05:00 BP 112/63 06/11/18 09:39 Pulse Ox 100 06/11/18 05:00 Intake & Output 06/10/18 06/11/18 06/11/18 18:59 06:59 18:59 Intake Total 900 Balance 900 Weight (lbs) 62.142 kg Intake: Oral 900 Other: # Voids 3 # Bowel Movements 2 Weight Source Bedscale Active Medications: Current Medications Acetaminophen (Tylenol) 650 mg PO Q4H PRN PRN Reason: Pain (Moderate) Stop: 08/08/18 10:00 Last Admin: 06/09/18 10:10 Dose: 650 mg Atenolol (Tenormin) 25 mg PO DAILY [facility] Stop: 08/09/18 08:59 Last Admin: 06/11/18 09:39 Dose: 25 mg Glipizide (Glucotrol) 15 mg PO BID [facility] Stop: 08/08/18 16:59 Last Admin: 06/11/18 09:39 Dose: 15 mg Ceftriaxone Sodium 1 gm/ (Sodium Chloride) 50 mls @ 100 mls/hr IV Q24HR [facility] Stop: 06/14/18 21:29 Last Admin: 06/10/18 20:44 Dose: 100 mls/hr Lorazepam (Ativan) 1 mg IVP Q6H PRN; Protocol PRN Reason: Agitation Stop: 08/07/18 21:22 Last Admin: 06/11/18 03:03 Dose: 1 mg Metformin HCl (Glucophage) 1,000 mg PO BID [facility] Stop: 08/08/18 16:59 Last Admin: 06/11/18 09:39 Dose: 1,000 mg Quetiapine Fumarate (Seroquel) 25 mg PO HS [facility]; Protocol Stop: 08/09/18 20:59 Last Admin: 06/10/18 20:43 Dose: 25 mg General: no acute distress HEENT: atraumatic, normocephalic, PERRLA, EOMI Neck: supple, no thyromegaly Cardiovascular: S1S2, regular Lungs: clear to auscultation bilaterally, clear to percussion Abdomen: soft, no tender, no distended, no mass Extremities: no cyanosis, no clubbing, no edema Neurological: awake, alert, oriented Skin: intact Infectious Disease Assmt/Plan - Problem List Patient Problems: All Active Problems WEAKNESS AND FREQUENT FALLS (Acute) - Assessment Assessment: 1. Urinary tract infection. 2. Diabetes mellitus type 2. 3. Hypertension. 4. Hyperlipidemia. 5. Dementia. - Plan Plan: continue Rocephin, which can be changed to Levaquin 250 mg p.o. daily for 3 more days.
--- NOTE | 2018-06-11 23:06 | Progress Notes ---
DATE: 06/11/2018 SUBJECTIVE: The patient is lying in bed. Awake, alert. The patient will talk. The patient staff tells me was unsteady with physical therapy. OBJECTIVE: VITAL SIGNS: Temperature 98.3, blood pressure 130/70, pulse is 74. NECK: Supple, no neck bruits. GENERAL: The patient awake, will follow some instructions. EXTREMITIES: Move upper and lower extremity. INVESTIGATIONS: The patient had a CT scan of the cervical spine, which shows severe deformity, chronic changes above the odontoid process with adjacent calcification, encroachment on the adjacent cervical cord. Will need an MRI. The patient's carotid Doppler, no significant stenosis. LABORATORY DATA: ESR 1, TSH okay. ASSESSMENT: 1. Encephalopathy. 2. Dementia and ataxia. 3. Myelopathy with the patient's severe changes on the CT scan of the cervical and question of spinal cord compression. 4. Neuropathy. 5. Diabetes. 6. Hypertension. 7. Urinary tract infection. PLAN: The patient's MRI of the cervical spine. Labs are pending. JOB# [id number]
== END 2018-06-11 16:26 | DRG 690 ==
LOC: ER 17:00 → MSI 19:45 → TELE 20:10
PROVIDERS: ADMIT Internal Medicine; ATTEND Internal Medicine
DX: N39.0 Urinary tract infection, site not specified (principal); G93.40 Encephalopathy, unspecified; G95.9 Disease of spinal cord, unspecified; I10 Essential (primary) hypertension; E78.5 Hyperlipidemia, unspecified; G30.9 Alzheimer's disease, unspecified; F02.80 Dementia in other diseases classified elsewhere, unspecified severity, without behavioral disturbance, psychotic disturbance, mood disturbance, and anxiety; R27.0 Ataxia, unspecified; E11.42 Type 2 diabetes mellitus with diabetic polyneuropathy; Z91.81 History of falling
CPT/HCPCS: 36415-UA; 70450-TC; 71045-TC; 72125-TC; 80048-TC; 80053-TC; 80061-TC; 81001-TC; 82085-90; 82550-TC; 82607-90; 82746-90; 82948-90; 83036-90; 84443-TC; 85025-TC; 85652-TC; 87086-90; 93005; 93880-TC; 97530; J0696; J2060; X3904; Z7610